=== PATIENT | female | born 1945 | race Caucasian/White ===

== ENCOUNTER → 2019-03-14 | Outpatient (CLI) | payer MEDICARE, BC, OTHER ==
[~2019-03-14] MED LIST: ASCO500 PO; ASPI81CH PO; ATEN50 PO; CALC.25 PO; CLARITIN10 MG PO; Diovan320 MG PO; ESCI10 PO; FURO40 PO; GLIP5 PO; INSULANPEN SC; PIOG45 PO; POTA10T PO; Premarin0.3 MG PO; ROSU5 PO; TRADJENTA5 MG PO
[2019-03-14 10:20] LABS: Albumin, Blood 3.9 g/dL (3.4-5.0); Albumin/Globulin Ratio 1.1 (0.8-1.8); Bilirubin, Total 0.4 mg/dL (0.1-1.0); Bun/Creatinine Ratio 21.3 (12.0-20.0); Creatinine, Blood 1.22 mg/dL (0.40-1.00); Globulin, Blood 3.6 g/dL (2.2-4.0); Potassium, Blood 4.2 mmol/L (3.5-5.5); Total Protein, Blood 7.5 g/dL (6.4-8.2)
== END | disposition home or self-care (01) ==
LOC: LAB SHORT 10:05 → LAB EV 10:05
PROVIDERS: Physician Assistant
DX: N18.2 Chronic kidney disease, stage 2 (mild) (principal); N39.0 Urinary tract infection, site not specified
CPT/HCPCS: 80053; 87077; 87086; 87186

== ENCOUNTER 2020-03-24 16:27 | Observation (INO) | payer MEDICARE, BC, OTHER ==
[~2020-03-24] VITALS: Ht 154.9 cm; Wt 85.0 kg
[~2020-03-24 16:27] MED LIST changes: -ASPI81CH PO; +Aspirin EC81 MG PO; +BASAGLAR K100 UNIT/1 SC; -INSULANPEN SC
[2020-03-24] MEDS ORDERED: LOSA50 PO (16:45)
[2020-03-24] MEDS ORDERED: VICTOZA 2-0.6 MG/0.1 SC (16:47)
[2020-03-24] MEDS ORDERED: OMEGA 3 FISH O1 EACH PO (16:48)
[2020-03-24 17:02] LABS: BASOPHILS ABSOLUTE AUTO 0.04 K/mm3 (0.00-0.23); BASOPHILS PERCENT AUTO 1 % (0-2); EOSINOPHILS ABSOLUTE AUTO 0.31 K/mm3 (0.00-0.68); EOSINOPHILS PERCENT AUTO 4 % (0-6); Hematocrit 37.2 % (33.0-51.0); IMMATURE GRAN ABSOLUTE AUTO 0.02 K/mm3 (0.00-0.10); IMMATURE GRAN PERCENT AUTO 0 % (0-1); LYMPHOCYTES ABSOLUTE AUTO 2.22 K/mm3 (0.84-5.20); LYMPHOCYTES PERCENT AUTO 27 % (21-46); MONOCYTES PERCENT AUTO 6 % (4-13); Mean Corpuscular HGB 30.9 pg (26.0-34.0); Mean Corpuscular HGB Conc 32.3 g/dL (31.5-36.5); Mean Corpuscular Volume 96 fL (80-100); Mean Platelet Volume 9.4 fL (9.1-12.4); NEUTROPHILS ABSOLUTE AUTO 5.29 K/mm3 (1.96-9.15); NEUTROPHILS PERCENT AUTO 63 % (41-73); Platelet Count 220 K/mm3 (150-400); RDW Coefficient Variation 12.9 % (11.7-14.2); RDW Standard Deviation 45.2 fL (35.1-46.3); Red Blood Cell Count 3.88 M/mm3 (3.80-5.20); White Blood Cell Count 8.38 K/mm3 (4.00-11.30)
[2020-03-24 17:20] LABS: Troponin I <0.015 ng/mL (0.000-0.040)
[2020-03-24 17:28] LABS: Alanine Aminotransfer (ALT/SGP 53 U/L (12-78); Albumin, Blood 3.6 g/dL (3.4-5.0); Albumin/Globulin Ratio 1.2 (0.8-1.8); Alk Phos 136 U/L (50-136); Anion Gap 7 mmol/L (6-16); Aspartate Aminotrans (AST/SGOT 72 U/L (12-37); Bilirubin, Total 0.4 mg/dL (0.1-1.0); Blood Urea Nitrogen 15 mg/dL (8-24); Bun/Creatinine Ratio 15.7 (12.0-20.0); CO2, Blood 23 mmol/L (21-32); Calcium, Blood 8.5 mg/dL (8.5-10.1); Chloride, Blood 111 mmol/L (98-108); Creatinine, Blood 0.96 mg/dL (0.40-1.00); Globulin, Blood 3.1 g/dL (2.2-4.0); Glomerular Filtration Rate >60 (60-); Glucose, Blood 195 mg/dL (70-99); Potassium, Blood 3.8 mmol/L (3.5-5.5); Sodium, Blood 141 mmol/L (136-145); Total Protein, Blood 6.7 g/dL (6.4-8.2)
[2020-03-24] MEDS ORDERED: CO Q10100 MG PO (23:36)
[2020-03-24] MEDS ORDERED: C COMPLEX1000 MG PO (23:37)
[2020-03-24] MEDS ORDERED: CALCIUM 600 +1 EA11 PO (23:39)
[2020-03-24] MEDS ORDERED: Loratadine10 MG PO (23:39)
[2020-03-24] MEDS ORDERED: L-Lysine500 M1 PO (23:40)
[2020-03-24] MEDS ORDERED: PRESERVISION A1 EACH PO (23:42)
--- NOTE | 2020-03-25 04:08 | NUR ---
SHIFT SUMMARY/ADMIT PT WAS NEW ER ADMIT THIS SHIFT (2114), NO ACUTE CHANGES SINCE ASSUMING CARE, PT DENIES CP, NO C/O ANY KIND, STATES SHE IS "FEELING GREAT", SLEPT T/O THE NIGHT & AT THIS TIME, CALL LIGHT IN REACH, WILL CONT TO MONITOR UNTIL REPORT GIVEN TO DAY RN.
--- NOTE | 2020-03-25 09:30 | NUR ---
PT PLEASANT COOP HOPING TO GO HOME THIS DAY. STATES FEELS FINE. DENIES CHEST PAIN, PRESSURE, TIGHTNESS, OR SOB. H/R REG, NO MURMER NOTED. PER TELE NSR AT 67. LUNGS CLEAR T/O. ON 2L DURING NIGHT. TAKES OFF DURING DAY. RESP EASY, UNLABORED. BT X4 LAST B/M TODAY. VOIDS INDEPENDANT TO BATHROOOM. BED IN LOW POSITOIN,C ALL LITE IN REACH, CALLS APROP
--- NOTE | 2020-03-25 15:00 | NUR ---
PT WISHES TO GO SEE FRIEND IN PCU. PT AMBULATED TO PCU TO SEE PT. NO SOB, PAIN, PRESSURE, CHEST PN. DR CHAVARRIA WAS IN TO SEE THIS AM. ORDERING STRESS TEST FOR TOMORROW..
--- NOTE | 2020-03-25 18:20 | NUR ---
PT PLEASANT AND TALKATIVE. DENIES CHEST PAIN, PRESSURE TIGHTNESS. ARM NUMBNESS. ETC. DID WALK TO PCU TO VISIT CLOSE FRIEND TODAY. DID WELL WITH WALK. ORDERS FOR STRESS TESTING TOMORROW. NPO MIDNITE. NO NEW CONCERNS AT THIS TIEM. BED IN LOW POSITIOIN, CALL LITE IN REACH, CALLS APPROP
--- NOTE | 2020-03-26 04:16 | NUR ---
SHIFT SUMMARY PATIENT HAD NO ACUTE CHANGES OBSERVED. AXOX 4 AND INDEPENDENT IN ROOM. DENIES CHEST PAIN, SOB, AND N/V. NPO AFTER 23:59 03/25/20 PER STRESS TEST. PIV REMAINS INTACT. [employer] REPORTS NSR 64. CBG 154 AND LANT[place] HELD PER PATIENT. ON 2L O2 NC DURING NIGHT. VSS/AFEBRILE. COOPERATIVE WITH CARE. CALL LIGHT IN REACH. BED IN LOWEST POSITION. WILL CONTINUE TO MONITOR UNTIL DAY SHIFT NURSE ASSUMES CARE.
--- NOTE | 2020-03-26 07:30 | NUR ---
PT QUITE PLEASANT COOP A/O. DENIES CHEST PAIN, PRESSURE, TIGHTNESS. ADMITS TO FEELING A FLUTTER IN CHEST LAST JORGE WHEN H/R SLOWED. WILL ADVISE DR WHEN SEE. H/R REG, NO MURMER NOTED. PER TELE NSR AT 79'S WITH [facility]. LUNGS CLEAR, RESP EASY, UNLABORED. ON R/A. B/T X4 LAST BM TODAY. VOIDS PER BATHROOM. INDEPENDANT IN ROOM. BED IN LOW POSITION, CALL LITE IN [facility], CALLS APROP. PENDING STRESS TEST THIS AM. PT NPO SINCE MIDNITE X WATER. HOLDING MEDS UNTIL RETURNS FORM PART ONE TEST.
--- NOTE | 2020-03-26 16:39 | NUR ---
PT DISCHARGE REVIEWED WITH PT. SHE VERBALIZED UNDERSTANDING OF MEDS AND INST. IV PULLED INTACT. TELE REMOVED AND RETURNED TO PCU. PT WALKED TO DOOR WITH AIDE AT 1640
== END 2020-03-26 18:11 | disposition home or self-care (01) ==
LOC: ER 16:27 → MEDS 16:28 → ER 21:05 → MEDS 21:20
PROVIDERS: Emergency Medicine; ADMIT Internal Medicine
DX: R07.89 Other chest pain (principal); I10 Essential (primary) hypertension; E78.5 Hyperlipidemia, unspecified; E11.9 Type 2 diabetes mellitus without complications; K21.9 Gastro-esophageal reflux disease without esophagitis; E66.9 Obesity, unspecified; Z79.82 Long term (current) use of aspirin; Z79.4 Long term (current) use of insulin; Z79.899 Other long term (current) drug therapy; Z88.1 Allergy status to other antibiotic agents
CPT/HCPCS: 36415; 71045; 78452; 80053; 82947; 84484; 85025; 93005; 93010; 93017; 94762; 96372; 99285-25; A9270; A9270-GY; A9500; G0378; J0706; J1650; J2785